=== PATIENT | female | born 1935 | race Caucasian/White ===

== ENCOUNTER 2018-05-17 00:25 | Inpatient (IN) | payer MEDICARE ==
[2018-05-17] VITALS (10 sets, daily range): BP systolic 132–158; BP diastolic 55–92; PULSE 64–93; RESP 16–20; TEMP 97.4–98.3; O2SAT 91–98
[2018-05-17 01:07] LABS: AUTOMATED NEUTROPHIL # 9.3 TH/MM3 (1.8-7.7); BASOPHIL # 0.1 TH/MM3 (0-0.2); BASOPHIL % 0.7 % (0.0-2.0); EOSINOPHIL # 0.1 TH/MM3 (0-0.4); EOSINOPHIL % 1.2 % (0.0-4.0); HEMATOCRIT 42.5 % (35.0-46.0); LYMPH % 8.2 % (9.0-44.0); LYMPHOCYTE # 0.9 TH/MM3 (1.0-4.8); MEAN CELL VOLUME 94.5 FL (80.0-100.0); MEAN CORPUSCULAR HEMOGLOBIN 31.1 PG (27.0-34.0); MEAN CORPUSCULAR HGB CONC 32.9 % (32.0-36.0); MEAN PLATELET VOLUME 10.3 FL (7.0-11.0); MONO % 4.9 % (0.0-8.0); MONOCYTE # 0.5 TH/MM3 (0-0.9); PLATELET COUNT 181 TH/MM3 (150-450); RED BLOOD COUNT 4.49 MIL/MM3 (4.00-5.30); RED CELL DISTRIBUTION WIDTH 13.7 % (11.6-17.2); WHITE BLOOD COUNT 10.9 TH/MM3 (4.0-11.0)
[2018-05-17] MEDS ORDERED: TRIA37.5 (01:15)
[2018-05-17] MEDS ORDERED: APIX5TAB PO (01:15)
[2018-05-17] MEDS ORDERED: LOVA40TA PO (01:15)
[2018-05-17] MEDS ORDERED: SOTA80TA PO (01:15)
[2018-05-17] MEDS ORDERED: DICY10CA12 PO (01:15)
[2018-05-17] MEDS ORDERED: TRAZ50TA12 PO (01:15)
[2018-05-17] MEDS ORDERED: METO25TA3 PO (01:15)
[2018-05-17] MEDS ORDERED: LEXA20TA PO (01:15)
[2018-05-17] MEDS ORDERED: PROT40TA PO (01:15)
[2018-05-17] MEDS ORDERED: KLOR10TA PO (01:15)
[2018-05-17] MEDS ORDERED: ALPR0.25 PO (01:15)
[2018-05-17] MEDS ORDERED: BACL10TA PO (01:15)
[2018-05-17] MEDS ORDERED: CYAN1TAB24 (01:16)
[2018-05-17] MEDS ORDERED: D200CAP PO (01:16)
[2018-05-17] MEDS ORDERED: ASPI-516 CHEW (01:16)
[2018-05-17 01:21] LABS: INTERNATIONAL NORMALIZED RATIO 1.2 RATIO; PROTHROMBIN TIME - PATIENT 12.4 SEC (9.8-11.6)
--- NOTE | 2018-05-17 01:30 | RADRPT ---
EXAM DATE: 05/17/2018 1:17 AM EDT AGE/SEX: 83 years / Female INDICATIONS: Short of breath. CLINICAL DATA: This is the patient's initial encounter. Patient reports that signs and symptoms have been present for 1 day and indicates a pain score of Nonresponsive. MEDICAL/SURGICAL HISTORY: . A-fib. Non-responsive. COMPARISON: No prior exams available for comparison. FINDINGS: The heart size is upper limits of normal. There is mild patchy density seen at the lung bases. The mi d and upper lungs are clear. No effusion is seen. Clips are seen over the left chest. CONCLUSION: Mild patchy atelectasis or consolidation at the lung bases. Electronically signed by: Harrison Frias MD 05/17/2018 1:29 AM EDT
[2018-05-17 01:42] LABS: BICARBONATE 23.6 MEQ/L (21.0-32.0); CALCIUM 8.7 MG/DL (8.5-10.1); CREATININE 0.92 MG/DL (0.50-1.00); MAGNESIUM 2.2 MG/DL (1.5-2.5)
[2018-05-17 01:45] LABS: TROPONIN I 0.02 NG/ML (0.02-0.05)
[2018-05-17] MEDS ORDERED: LEVOFLOXACIN 750 MG PREMIX INJ 150 ML IV ONE (02:30)
--- NOTE | 2018-05-17 03:35 | PD ---
HPI Chief Complaint: Respiratory Distress Time Seen by Provider: 00:44 Travel History International Travel<30 days: No Contact w/Intl Traveler<30days: No Traveled to known affect area: No History of Present Illness HPI Patient is staying [facility] and [facility] sudden decline in respiratory difficulty last 3 days been getting worse shortness of breath in route she desatted to 80% on room air was put on CPAP by the paramedics hypertension originally was given Lasix 80 nitro sublingual arrives on BiPAP seems to have moderate respiratory distress using accessory muscles to breathe she has a history of recently being diagnosed with A. fib she is recently started on sotalol however she is not tachycardic but she is mildly hypertensive but after the nitro and the Lasix kick in her BP is 139/80 she is temporarily tried on 100% nonrebreather but put her back on the BiPAP because she is working hard to breathe chest x-ray ordered EKG is done she is in sinus rhythm chest x-ray shows bilateral possible consolidations and she is admitted for [facility] Past Medical History Atrial Fibrillation: Yes Diminished Hearing: No Social History Alcohol Use: No Tobacco Use: No Substance Use: No Allergies-Medications (Allergen,Severity, Reaction): Coded Allergies: Sulfa (Sulfonamide Antibiotics) (Verified Allergy, Severe, 05/17/18) Reported Meds & Prescriptions Reported Meds & Active Scripts Active Reported D3 Super Strength (Cholecalciferol) 2,000 Unit Cap 2,000 Units PO DAILY B12 (Cyanocobalamin) 1,000 Mcg Tab Aspirin 81 Mg Chew 81 Mg CHEW DAILY Sotalol (Sotalol HCl) 80 Mg Tab 80 Mg PO BID Trazodone (Trazodone HCl) 50 Mg Tab 50 Mg PO HS Metoprolol Tartrate 25 Mg Tab 12.5 Mg PO BID Eliquis (Apixaban) 5 Mg Tab 5 Mg PO BID Lovastatin 40 Mg Tab 40 Mg PO DAILY Dicyclomine (Dicyclomine HCl) 10 Mg Cap 10 Mg PO DAILY Lexapro (Escitalopram Oxalate) 20 Mg Tab 20 Mg PO DAILY Baclofen 10 Mg Tab 10 Mg PO DAILY Klor-Con 10 (Potassium Chloride) 10 Meq Tab 10 Meq PO BID Alprazolam 0.25 Mg Tab 0.25 Mg PO Q12HR PRN Protonix (Pantoprazole Sodium) 40 Mg Tab 40 Mg PO DAILY Triamterene-Hydrochlorothiazide 37.5-25 Mg Tab 1 Tab DAILY Data Data Last Documented VS Vital Signs Date Time Temp Pulse Resp B/P (MAP) Pulse Ox O2 Delivery O2 Flow Rate FiO2 05/17/18 01:03 98 BiPAP 05/17/18 00:45 30 05/17/18 00:42 15.00 05/17/18 00:33 98.3 93 16 132/92 (105) Orders Orders Electrocardiogram (05/17/18 00:44) Basic Metabolic Panel (Bmp) (05/17/18 00:44) B-Type Natriuretic Peptide (05/17/18 00:44) Ckmb (Isoenzyme) Profile (05/17/18 00:44) Complete Blood Count With Diff (05/17/18 00:44) Magnesium (Mg) (05/17/18 00:44) Prothrombin Time / Inr (Pt) (05/17/18 00:44) Act Partial Throm Time (Ptt) (05/17/18 00:44) Troponin I (05/17/18 00:44) Chest, Single Ap (05/17/18 00:44) Ecg Monitoring (05/17/18 00:44) Bilateral Bp Monitoring (05/17/18 00:44) Iv Access Insert/Monitor (05/17/18 00:44) Oximetry (05/17/18 00:44) Oxygen Administration (05/17/18 00:44) Resp Bipap / Cpap Non Invas Vt (05/17/18 ) Levofloxacin 750 Mg Premix Inj (Levaquin (05/17/18 02:30) Labs Laboratory Tests Test 05/17/18 00:50 White Blood Count 10.9 TH/MM3 Red Blood Count 4.49 MIL/MM3 Hemoglobin 14.0 GM/DL Hematocrit 42.5 % Mean Corpuscular Volume 94.5 FL Mean Corpuscular Hemoglobin 31.1 PG Mean Corpuscular Hemoglobin Concent 32.9 % Red Cell Distribution Width 13.7 % Platelet Count 181 TH/MM3 Mean Platelet Volume 10.3 FL Neutrophils (%) (Auto) 85.0 % Lymphocytes (%) (Auto) 8.2 % Monocytes (%) (Auto) 4.9 % Eosinophils (%) (Auto) 1.2 % Basophils (%) (Auto) 0.7 % Neutrophils # (Auto) 9.3 TH/MM3 Lymphocytes # (Auto) 0.9 TH/MM3 Monocytes # (Auto) 0.5 TH/MM3 Eosinophils # (Auto) 0.1 TH/MM3 Basophils # (Auto) 0.1 TH/MM3 CBC Comment DIFF FINAL Differential Comment Prothrombin Time 12.4 SEC Prothromb Time International Ratio 1.2 RATIO Activated Partial Thromboplast Time 23.4 SEC Blood Urea Nitrogen 17 MG/DL Creatinine 0.92 MG/DL Random Glucose 218 MG/DL Calcium Level 8.7 MG/DL Magnesium Level 2.2 MG/DL Sodium Level 139 MEQ/L Potassium Level 3.5 MEQ/L Chloride Level 103 MEQ/L Carbon Dioxide Level 23.6 MEQ/L Anion Gap 12 MEQ/L Estimat Glomerular Filtration Rate 59 ML/MIN Total Creatine Kinase 91 U/L Troponin I 0.02 NG/ML B-Type Natriuretic Peptide 161 PG/ML Jose Hutchins MD May 17, 2018 03:35
[2018-05-17] MEDS ORDERED: ACETAMINOPHEN 325 MG TAB PO PRN (05:15)
[2018-05-17] MEDS ORDERED: RESP: ALBUTEROL 2.5 MG/IPRATROPIUM 0.5 MG NEB (PRN) INH (05:15)
[2018-05-17] MEDS ORDERED: SODIUM CHLORIDE 0.9% FLUSH 10 ML FLUSH IV FLUSH PRN (05:15)
[2018-05-17] MEDS ORDERED: ONDANSETRON HCL 4 MG/2 ML VIAL IV PUSH PRN (05:15)
[2018-05-17] MEDS ORDERED: ALPRAZolam 0.25 MG TAB PO PRN (05:15)
[2018-05-17] MEDS ORDERED: POTASSIUM CHLORIDE 10 MEQ CONTROLLED RELEASE TAB PO SCH (09:00)
[2018-05-17] MEDS ORDERED: SOTALOL HCL 80 MG TAB PO SCH (09:00)
[2018-05-17] MEDS ORDERED: DICYCLOMINE HCL 10 MG CAP PO SCH (09:00)
[2018-05-17] MEDS ORDERED: ESCITALOPRAM OXALATE 20 MG TAB PO SCH (09:00)
[2018-05-17] MEDS ORDERED: BACLOFEN 10 MG TAB PO SCH (09:00)
[2018-05-17] MEDS ORDERED: PANTOPRAZOLE SOD 40 MG DELAYED RELEASE TAB PO SCH (09:00)
[2018-05-17] MEDS ORDERED: PRAVASTATIN SOD 40 MG TAB PO SCH (09:00)
[2018-05-17] MEDS ORDERED: SODIUM CHLORIDE 0.9% FLUSH 10 ML FLUSH IV FLUSH SCH (09:00)
[2018-05-17] MEDS ORDERED: ASPIRIN 81 MG CHEW TAB CHEW SCH (09:00)
[2018-05-17] MEDS: METOPROLOL TARTRATE 25 MG TAB PO SCH ×2 (09:00→13:36)
[2018-05-17] MEDS ORDERED: TRIAMTERENE/HCTZ 37.5 MG/25 MG TAB PO SCH (09:00)
[2018-05-17] MEDS ORDERED: APIXABAN 5 MG TABLET PO SCH (09:00)
[2018-05-17] MEDS: RESP: ALBUTEROL 2.5 MG/IPRATROPIUM 0.5 MG NEB (SCH) INH ×2 (09:30→15:31)
--- NOTE | 2018-05-17 11:33 | HHI.HP ---
HPI Service [facility] Primary Care Physician Unknown Admission Diagnosis sob resp distress Diagnoses: Travel History International Travel<30 Days: No Contact w/Intl Traveler <30 Da: No Traveled to Known Affected Are: No History of Present Illness Mrs. Waller is an 83 year old female. She came into the emergency department with shortness of breath. Hypoxia was present. Patient was saturating in the 80s upon arrival. Imaging shows consolidation bilaterally at bases. Primary etiology could be pneumonia. Patient reports night sweats. No fever has been documented. No leukocytosis is present. Alternate etiologies could be related to consolidation buildup from uncontrolled atrial fibrillation though no evidence of this has been found yet. Finally she could have a pulmonary embolus. She does have A. fib at baseline and is on Eliquis which would decrease that chance. Presently her oxygenation has been controlled on 4 L of oxygen and she has been able to be weaned down to 3 L/min of oxygen. She is resting comfortably when seen. Some degree of lung disease may be present the patient has not been formally worked up or diagnosed with anything. She uses an albuterol inhaler occasionally. No other complaints when seen. No chest pain. Review of Systems Constitutional: COMPLAINS OF: Chills, Night Sweats, DENIES: Fatigue, Fever Eyes: DENIES: Blurred vision, Diplopia, Eye inflammation Ears, nose, mouth, throat: DENIES: Tinnitus, Hearing loss, Vertigo, Nasal discharge Respiratory: COMPLAINS OF: Wheezing, Shortness of breath, DENIES: Cough Cardiovascular: DENIES: Chest pain, Palpitations, Syncope Gastrointestinal: DENIES: Abdominal pain, Black stools, Bloody stools, Nausea, Vomiting Musculoskeletal: DENIES: Joint pain, Muscle aches, Stiffness, Joint Swelling Integumentary: DENIES: Abnormal pigmentation, Pruritus, Rash Hematologic/lymphatic: DENIES: Bruising, Lymphadenopathy Immunologic/allergic: DENIES: Eczema, Urticaria Neurologic: DENIES: Abnormal gait, Headache, Paresthesias Psychiatric: DENIES: Anxiety, Confusion, Hallucinations Except as stated in HPI: all other systems reviewed are Neg Past Family Social History Past Medical History Hypertension Atrial fibrillation Depression/anxiety Gastroesophageal reflux disease Past Surgical History Cholecystectomy Hysterectomy Tonsillectomy Lumpectomy of left breast Reported Medications Reported Meds & Active Scripts Active Reported D3 Super Strength (Cholecalciferol) 2,000 Unit Cap 2,000 Units PO DAILY B12 (Cyanocobalamin) 1,000 Mcg Tab Aspirin 81 Mg Chew 81 Mg CHEW DAILY Sotalol (Sotalol HCl) 80 Mg Tab 80 Mg PO BID Trazodone (Trazodone HCl) 50 Mg Tab 50 Mg PO HS Metoprolol Tartrate 25 Mg Tab 12.5 Mg PO BID Eliquis (Apixaban) 5 Mg Tab 5 Mg PO BID Lovastatin 40 Mg Tab 40 Mg PO DAILY Dicyclomine (Dicyclomine HCl) 10 Mg Cap 10 Mg PO DAILY Lexapro (Escitalopram Oxalate) 20 Mg Tab 20 Mg PO DAILY Baclofen 10 Mg Tab 10 Mg PO DAILY Klor-Con 10 (Potassium Chloride) 10 Meq Tab 10 Meq PO BID Alprazolam 0.25 Mg Tab 0.25 Mg PO Q12HR PRN Protonix (Pantoprazole Sodium) 40 Mg Tab 40 Mg PO DAILY Triamterene-Hydrochlorothiazide 37.5-25 Mg Tab 1 Tab DAILY Allergies: Coded Allergies: Sulfa (Sulfonamide Antibiotics) (Verified Allergy, Severe, 05/17/18) Active Ordered Medications Administered Medications Medications (Trade) Dose Ordered Sig/Rosemary Route PRN Reason Start Time Stop Time Status Last Admin Dose Admin Sodium Chloride (NS Flush) 2 ml BID IV FLUSH 05/17/18 09:00 05/17/18 10:05 Albuterol/ Ipratropium (Duoneb Neb) 1 ampule Q6HR NEB INH 05/17/18 10:00 05/17/18 09:30 Apixaban (Eliquis) 5 mg BID PO 05/17/18 09:00 05/17/18 10:05 Dicyclomine HCl (Bentyl) 10 mg DAILY PO 05/17/18 09:00 05/17/18 10:05 Escitalopram Oxalate (Lexapro) 20 mg DAILY PO 05/17/18 09:00 05/17/18 10:05 Pravastatin Sodium (Pravachol) 40 mg DAILY PO 05/17/18 09:00 05/17/18 10:05 Pantoprazole Sodium (Protonix) 40 mg DAILY PO 05/17/18 09:00 05/17/18 10:05 Potassium Chloride (KCl) 10 meq BID PO 05/17/18 09:00 05/17/18 10:05 Sotalol HCl (Betapace) 80 mg BID PO 05/17/18 09:00 05/17/18 10:05 Family History Congestive heart failure, myocardial infarction in father CVAs in mother Social History No smoking No drinking alcohol No illicit drug abuse Physical Exam Vital Signs Vital Signs Date Time Temp Pulse Resp B/P (MAP) Pulse Ox O2 Delivery O2 Flow Rate FiO2 05/17/18 08:36 97.7 84 20 158/84 (108) 97 05/17/18 08:10 05/17/18 07:00 19 98 Nasal Cannula 4.00 05/17/18 07:00 98 Nasal Cannula 4.00 05/17/18 06:31 78 17 148/78 (101) 98 Nasal Cannula 4.00 05/17/18 04:31 76 18 133/55 (81) 98 Nasal Cannula 4.00 05/17/18 01:03 98 BiPAP 05/17/18 01:03 BiPAP 05/17/18 00:45 94 30 05/17/18 00:42 98 Non-Rebreather 15.00 05/17/18 00:33 98.3 93 16 132/92 (105) 92 Physical Exam GENERAL: NAD, A&Ox3 HEAD: Normocephalic. NECK: Supple, trachea midline. No lymphadenopathy. EYES: No scleral icterus. No injection or drainage. CARDIOVASCULAR: Regular rate and rhythm without murmurs, gallops, or rubs. RESPIRATORY: Breath sounds equal bilaterally. No accessory muscle use. GASTROINTESTINAL: Abdomen soft, non-tender, nondistended. MUSCULOSKELETAL: No cyanosis, or edema. SKIN: Warm and dry. NEURO: No focal neurological deficitis. Laboratory Laboratory Tests Test 05/17/18 00:50 White Blood Count 10.9 Red Blood Count 4.49 Hemoglobin 14.0 Hematocrit 42.5 Mean Corpuscular Volume 94.5 Mean Corpuscular Hemoglobin 31.1 Mean Corpuscular Hemoglobin Concent 32.9 Red Cell Distribution Width 13.7 Platelet Count 181 Mean Platelet Volume 10.3 Neutrophils (%) (Auto) 85.0 Lymphocytes (%) (Auto) 8.2 Monocytes (%) (Auto) 4.9 Eosinophils (%) (Auto) 1.2 Basophils (%) (Auto) 0.7 Neutrophils # (Auto) 9.3 Lymphocytes # (Auto) 0.9 Monocytes # (Auto) 0.5 Eosinophils # (Auto) 0.1 Basophils # (Auto) 0.1 CBC Comment DIFF FINAL Differential Comment Prothrombin Time 12.4 Prothromb Time International Ratio 1.2 Activated Partial Thromboplast Time 23.4 Blood Urea Nitrogen 17 Creatinine 0.92 Random Glucose 218 Calcium Level 8.7 Magnesium Level 2.2 Sodium Level 139 Potassium Level 3.5 Chloride Level 103 Carbon Dioxide Level 23.6 Anion Gap 12 Estimat Glomerular Filtration Rate 59 Total Creatine Kinase 91 Troponin I 0.02 B-Type Natriuretic Peptide 161 Result Diagram: 05/17/184905/17/1849 Imaging Last Impressions Chest X-Ray 05/17/1843 Signed Impressions: CONCLUSION: Mild patchy atelectasis or consolidation at the lung bases. Caprini VTE Risk Assessment Caprini VTE Risk Assessment: Mod/High Risk (score >= 2) Caprini Risk Assessment Model Point Value = 1 Point Value = 2 Point Value = 3 Point Value = 5 Age 41-60 Minor surgery BMI > 25 kg/m2 Swollen legs Varicose veins or History of unexplained or recurrent spontaneous Oral contraceptives or hormone replacement Sepsis (< 1 month) Serious lung disease, including pneumonia (< 1 month) Abnormal pulmonary function Acute myocardial infarction Congestive heart failure (< 1 month) History of inflammatory bowel disease Medical patient at bed rest Age 61-74 Arthroscopic surgery Major open surgery (> 45 min) Laparoscopic surgery (> 45 min) Malignancy Confined to bed (> 72 hours) Immobilizing plaster cast Central venous access Age >= 75 History of VTE Family history of VTE Factor V Leiden Prothrombin [id number] Lupus anticoagulant Anticardiolipin antibodies Elevated serum homocysteine Heparin-induced thrombocytopenia Other congenital or acquired thrombophilia Stroke (< 1 month) Elective arthroplasty Hip, pelvis, or leg fracture Acute spinal cord injury (< 1 month) Prophylaxis Regimen Total Risk Factor Score Risk Level Prophylaxis Regimen 0-1 Low Early ambulation 2 Moderate Order ONE of the following: *Sequential Compression Device (SCD) *Heparin 5000 units SQ BID 3-4 Higher Order ONE of the following medications: *Heparin 5000 units SQ TID *Enoxaparin/Lovenox 40 mg SQ daily (WT < 150 kg, CrCl > 30 mL/min) *Enoxaparin/Lovenox 30 mg SQ daily (WT < 150 kg, CrCl > 10-29 mL/min) *Enoxaparin/Lovenox 30 mg SQ BID (WT < 150 kg, CrCl > 30 mL/min) AND/OR *Sequential Compression Device (SCD) 5 or more Highest Order ONE of the following medications: *Heparin 5000 units SQ TID (Preferred with Epidurals) *Enoxaparin/Lovenox 40 mg SQ daily (WT < 150 kg, CrCl > 30 mL/min) *Enoxaparin/Lovenox 30 mg SQ daily (WT < 150 kg, CrCl > 10-29 mL/min) *Enoxaparin/Lovenox 30 mg SQ BID (WT < 150 kg, CrCl > 30 mL/min) AND *Sequential Compression Device (SCD) Assessment and Plan Problem List: (1) Hypoxia ICD Code: R09.02 - Hypoxemia (2) Community acquired pneumonia ICD Code: J18.9 - Pneumonia, unspecified organism Assessment and Plan 83-year-old female admitted secondary to hypoxia with pneumonia Hypoxia Community-acquired pneumonia Patient stabilized with oxygen Due to acute onset will evaluate for pulmonary embolism Continue oxygen support Continue Levaquin Probiotics Atrial fibrillation No change to baseline treatments Follow on telemetry Hypertension Continue baseline treatment Follow blood pressures Adjust treatments as needed Depression/anxiety Gastroesophageal reflux disease No change to baseline treatments DVT prophylaxis Continue Eliquis Physician Certification 2 Midnight Certification Type: Admission for Inpatient Services Order for Inpatient Services The services are ordered in accordance with Medicare regulations or non- Medicare payer requirements, as applicable. In the case of services not specified as inpatient-only, they are appropriately provided as inpatient services in accordance with the 2-midnight benchmark. Estimated LOS (days): 2 days is the estimated time the patient will need to remain in the hospital, assuming treatment plan goals are met and no additional complications. Post-Hospital Plan: Home Leandro Lange MD May 17, 2018 11:33
[2018-05-17] MEDS ORDERED: IOHEXOL 350 MG/ML 10 ML VIAL (for RAD DIAG) IVCONTRAST ONE (12:56)
--- NOTE | 2018-05-17 12:59 | RADRPT ---
EXAM DATE: 05/17/2018 12:43 PM EDT AGE/SEX: 83 years / Female INDICATIONS: Shortness of breath. CLINICAL DATA: This is the patient's initial encounter. Patient reports that signs and symptoms have been present for 1 day and indicates a pain score of 0/10. MEDICAL/SURGICAL HISTORY: Hypertension. Chronic obstructive pulmonary disease. Breast cancer. Non e. RADIATION DOSE: 20.30 CTDI (mGy) COMPARISON: No prior exams available for comparison. TECHNIQUE: Volumetric scanning was performed using a multi-row detector CT scanner during bolus infu alexia of 60 ml Omnipaque 350 (iohexol) nonionic water-soluble contrast as a single exam dose. The yonas a was post processed with a variety of visualization algorithms including full volume maximum intensi ty projection and sliding thin slab reformation. Using automated exposure control and adjustment of the mA and/or kV according to patient size, radiation dose was kept as low as reasonably achievable t o obtain optimal diagnostic quality images. DICOM format image data is available electronically for review and comparison. FINDINGS: There are no filling defects are identified in the pulmonary arteries to suggest pulmonary embolic di sease. There are small bilateral pleural effusions. There is a mosaic attenuation pattern in the lung s with some areas of hyperinflated and other secondary pulmonary lobules of groundglass opacity. Diff erential diagnosis includes air trapping perhaps related to extrinsic exposure. Early edema could giv e this appearance as well. Heart size enlarged. Moderate coronary calcifications. Previous lumpectomy left breast. No acute findings upper abdomen. CONCLUSION: 1. Negative for pulmonary embolus. 2. Small bilateral pleural effusions with groundglass opacity in the lungs as well as some mosaic at tenuation. Findings may represent mild congestive heart failure. Mosaic attenuation also suggests hetal e air trapping that can be seen with extrinsic allergic alveolitis. 3. Moderate to severe coronary artery calcifications. Electronically signed by: Fernie Troncoso MD 05/17/2018 12:57 PM EDT
[2018-05-17] MEDS ORDERED: LACTOBACILLUS ACIDOPHILUS TAB PO SCH (13:00)
--- NOTE | 2018-05-17 13:36 | EKG ---
Date Performed: 05/17/2018 Time Performed: 00:37:45 PTAGE: 83 years EKG: Sinus rhythm WITH OCCASIONAL SUPRAVENTRICULAR PREMATURE COMPLEXES RIGHT BUNDLE BRANCH BLOCK ABNORMAL ECG NO PREVIOUS TRACING DOCTOR: [place] Interpretating Date/Time 05/17/2018 13:34:27
[2018-05-17] MEDS ORDERED: LACTTAB8 PO ×2 (14:14→15:07)
[2018-05-17] MEDS ORDERED: OXYGENDME NAS.CANULA (14:14)
[2018-05-17] MEDS ORDERED: PRED20 PO ×2 (14:14→15:07)
[2018-05-17] MEDS ORDERED: LEVA750T9 PO (14:14)
[2018-05-17] MEDS ORDERED: predniSONE 20 MG TAB PO ONE (14:30)
--- NOTE | 2018-05-17 15:19 | HHI.DS ---
Discharge Summary Admission Date May 17, 2018 at 05:12 Discharge Date: May 17, 2018 Admitting Diagnosis sob resp distress (1) Hypoxia ICD Code: R09.02 - Hypoxemia Diagnosis: Principal (2) Community acquired pneumonia ICD Code: J18.9 - Pneumonia, unspecified organism Diagnosis: Principal Procedures None Brief History - From Admission Mrs. Waller is an 83 year old female. She came into the emergency department with shortness of breath. Hypoxia was present. Patient was saturating in the 80s upon arrival. Imaging shows consolidation bilaterally at bases. Primary etiology could be pneumonia. Patient reports night sweats. No fever has been documented. No leukocytosis is present. Alternate etiologies could be related to consolidation buildup from uncontrolled atrial fibrillation though no evidence of this has been found yet. Finally she could have a pulmonary embolus. She does have A. fib at baseline and is on Eliquis which would decrease that chance. Presently her oxygenation has been controlled on 4 L of oxygen and she has been able to be weaned down to 3 L/min of oxygen. She is resting comfortably when seen. Some degree of lung disease may be present the patient has not been formally worked up or diagnosed with anything. She uses an albuterol inhaler occasionally. No other complaints when seen. No chest pain. CBC/BMP: 05/17/18 0050 05/17/18 0050 Significant Findings Laboratory Tests Test 05/17/18 00:50 Neutrophils (%) (Auto) 85.0 % (16.0-70.0) Lymphocytes (%) (Auto) 8.2 % (9.0-44.0) Neutrophils # (Auto) 9.3 TH/MM3 (1.8-7.7) Lymphocytes # (Auto) 0.9 TH/MM3 (1.0-4.8) Prothrombin Time 12.4 SEC (9.8-11.6) Activated Partial Thromboplast Time 23.4 SEC (24.3-30.1) Random Glucose 218 MG/DL (74-106) Estimat Glomerular Filtration Rate 59 ML/MIN (>89) B-Type Natriuretic Peptide 161 PG/ML (0-100) Hospital Course Mrs. Waller is an 83 year old female. She came in secondary to shortness of breath and hypoxia. At baseline she had some known lung disease. Evidence for pneumonia is seen on imaging. She has a history of chronic smoke exposure and her and was born prematurely. CTA of chest ruled out pulmonary embolism , confirmed evidence for pneumonia, and suggested chronic lung disease, which would correlate with history. The patient's oxygen status improved quicker than expected. She is able to be weaned from oxygen this afternoon during a walk test. Family wishes to take this patient home and patient wishes to discharge from the hospital this afternoon. Given that she is breathing comfortably on room air and has had good response to steroids and antibiotics. She is medically cleared for discharge to home with her family. She will continue on antibiotics for 1 week, steroids for 4 days, and probiotics for 10 days. Discharge home today. Pt Condition on Discharge: Stable Discharge Disposition: Discharge Home Discharge Time: <= 30 minutes Discharge Instructions DIET: Follow Instructions for: As Tolerated, No Restrictions Activities you can perform: See Additionl Instruction Other Activity Instructions: Exertion and activity as tolerated. Use caution till respiratory status returns to normal baseline. Follow up Referrals: PCP Follow-up - 1 Week PCP Follow-up New Medications: Lactobacillus Acidophilus (Lactobacillus Acidophilus) 1 Billion Cell Tab 1 TAB PO TIDAC for Nutritional Supplement, #30 TAB 0 Refills Levofloxacin (Levaquin) 750 Mg Tablet 750 MG PO DAILY for Infection, #7 TAB 0 Refills Prednisone (Prednisone) 20 Mg Tab 20 MG PO DAILY for Inflammation, #4 TAB 0 Refills Continued Medications: Alprazolam (Alprazolam) 0.25 Mg Tab 0.25 MG PO Q12HR PRN for ANXIETY, TAB 0 Refills Apixaban (Eliquis) 5 Mg Tab 5 MG PO BID for Blood Clot Prevention, #60 TAB 0 Refills Aspirin (Aspirin) 81 Mg Chew 81 MG CHEW DAILY, TAB 0 Refills Baclofen (Baclofen) 10 Mg Tab 10 MG PO DAILY, TAB 0 Refills Cholecalciferol (D3 Super Strength) 2,000 Unit Cap 2000 UNITS PO DAILY for Nutritional Supplement, #30 CAP 0 Refills Cyanocobalamin (B12) 1,000 Mcg Tab Dicyclomine (Dicyclomine) 10 Mg Cap 10 MG PO DAILY for Bowel Management, CAP 0 Refills Escitalopram (Lexapro) 20 Mg Tab 20 MG PO DAILY, #30 TAB 0 Refills Lovastatin (Lovastatin) 40 Mg Tab 40 MG PO DAILY for Cholesterol Management, #30 TAB 0 Refills Metoprolol Tartrate (Metoprolol Tartrate) 25 Mg Tab 12.5 MG PO BID, #60 TAB 0 Refills Pantoprazole (Protonix) 40 Mg Tab 40 MG PO DAILY for Reflux, #30 TAB 0 Refills Potassium Chloride ER (Klor-Con 10) 10 Meq Tab 10 MEQ PO BID for Electrolyte Replacement, #60 TAB 0 Refills Sotalol (Sotalol) 80 Mg Tab 80 MG PO BID for Regulate Heart Beat, #60 TAB 0 Refills Trazodone (Trazodone) 50 Mg Tab 50 MG PO HS for Control Depression, #30 TAB 0 Refills Triamterene-Hydrochlorothiazide (Triamterene-Hydrochlorothiazide) 37.5-25 Mg Tab 1 TAB DAILY, #30 TAB 0 Refills Leandro Lange MD May 17, 2018 15:19
[2018-05-17] MEDS ORDERED: traZODone HCL 50 MG TAB PO SCH (21:00)
[2018-05-18] MEDS ORDERED: LEVOFLOXACIN 750 MG PREMIX INJ 150 ML IV SCH (03:20)
== END 2018-05-17 15:52 | disposition home or self-care (01) | DRG 195 ==
LOC: NEPE 00:25 → NEDA 04:58 → OBSVTOIN 05:12 → N05A 08:21
PROVIDERS: ADMIT Hospitalist; ATTEND Hospitalist
DX: J18.9 Pneumonia, unspecified organism (principal); R06.03 Acute respiratory distress; I48.91 Unspecified atrial fibrillation; I10 Essential (primary) hypertension; R09.02 Hypoxemia; J98.4 Other disorders of lung; K21.9 Gastro-esophageal reflux disease without esophagitis; F32.9 Major depressive disorder, single episode, unspecified; F41.9 Anxiety disorder, unspecified; Z79.01 Long term (current) use of anticoagulants; Z82.49 Family history of ischemic heart disease and other diseases of the circulatory system; Z82.3 Family history of stroke; Z88.2 Allergy status to sulfonamides
CPT/HCPCS: 71045; 71275; 80048; 82550; 83735; 83880; 84484; 85025; 85610; 85730; 93005; 94618; 94664; 96365; J1956; J7512; Q9967